=== PATIENT | female | born 1965 | race American Indian/Alaskan Native ===

== ENCOUNTER 2017-07-03 09:21 | Emergency (ER) | payer SELFPAY ==
[2017-07-03] MEDS ORDERED: ASPIRIN PO ONE (09:28)
[2017-07-03] MEDS ORDERED: NORVASC PO ONE (09:58)
[2017-07-03 10:18] LABS: BUN/Creatinine Ratio 15; Blood Urea Nitrogen 9 mg/dL (7-17); Calcium 8.7 mg/dL (8.4-10.2); Hemolysis Index 11
[2017-07-03] MEDS ORDERED: SUBLIMAZE IV ONE (10:30)
[2017-07-03] MEDS ORDERED: NACL 0.9% 500 ML 500 ML IV ONE (10:30)
[2017-07-03] MEDS ORDERED: APRESOLINE IV ONE (10:30)
[2017-07-03] MEDS ORDERED: PEPCID IV ONE (10:30)
--- NOTE | 2017-07-03 10:31 | Emergency Department Report ---
ED Chest Pain HPI - General Chief Complaint: Chest Pain Stated Complaint: CP Time Seen by Provider: 07/03/17 10:15 Source: patient, RN notes reviewed Mode of arrival: Ambulatory Limitations: No Limitations - History of Present Illness Initial Comments: This is a 52-year-old female. The patient is previously unknown to this provider. She has a past medical history of hypertension. She does not have a local primary care doctor. She presents to the ER with a complaint of chest pressure and pain. It started yesterday. It is intermittent. It does not radiate to the back, arms or neck. He does not have exacerbating or relieving factors. There is no vomiting, diaphoresis. The patient does describe shortness of breath with exertion There is no recent aspirin use or cocaine use. There are no DVT or pulmonary embolus risk factors. There is no hematemesis or bright red blood per rectum. MD Complaint: chest pain -: Gradual Onset: during rest, during exertion Pain Location: substernal Severity: moderate Quality: tightness, aching Consistency: intermittent Improves With: rest Worsens With: movement re: dyspnea Aspirin use within the Past 7 Days: (0) No - Related Data On Oral Contraceptives: No Home Medications Medication Instructions Recorded Confirmed Last Taken No Known Home Medications [No 07/03/17 07/03/17 Unknown Reported Home Medications] Allergies Allergy/AdvReac Type Severity Reaction Status Date / Time No Known Allergies Allergy Unverified 11/07/12 18:10 Heart Score - HEART Score History: Moderately suspicious EKG: Non-specific Age: 45-65 Risk factors: 1-2 risk factors Troponin: < normal limit HEART Score: 4 - Critical Actions Critical Actions: 4-6 pts:12-16.6% risk of adverse cardiac event. Should be admitted ED Review of Systems ROS: Stated complaint: CP Other details as noted in HPI Comment: All other systems reviewed and negative ED Past Medical Hx - Past Medical History Hx Hypertension: Yes Hx Arthritis: Yes - Surgical History Additional Surgical History: Tubligation and , right hand surgery - Social History Smoking Status: Never Smoker Substance Use Type: None - Medications Home Medications: Home Medications Medication Instructions Recorded Confirmed Last Taken Type No Known Home Medications [No 07/03/17 07/03/17 Unknown History Reported Home Medications] ED Physical Exam - General Limitations: No Limitations General appearance: alert, in no apparent distress - Head Head exam: Present: atraumatic, normocephalic - Eye Eye exam: Present: normal appearance, EOMI. Absent: nystagmus - ENT ENT exam: Present: normal exam, normal orophraynx, mucous membranes moist, normal external ear exam - Neck Neck exam: Present: normal inspection, full ROM - Respiratory Respiratory exam: Present: normal lung sounds bilaterally. Absent: respiratory distress, chest wall tenderness - Cardiovascular Cardiovascular Exam: Present: regular rate, normal rhythm, normal heart sounds. Absent: bradycardia, tachycardia, irregular rhythm, systolic murmur, diastolic murmur, rubs, gallop - GI/Abdominal GI/Abdominal exam: Present: soft, normal bowel sounds. Absent: distended, tenderness, guarding, rebound, rigid, pulsatile mass - Extremities Exam Extremities exam: Present: normal inspection, full ROM, normal capillary refill. Absent: pedal edema, joint swelling, calf tenderness - Back Exam Back exam: Present: normal inspection, full ROM. Absent: tenderness, CVA tenderness (R), paraspinal tenderness, vertebral tenderness - Neurological Exam Neurological exam: Present: alert, oriented X3, CN II-XII intact, normal gait, other (Extraocular movements intact. Tongue midline. No facial droop. Facial sensation intact to light touch in the V1, V2, V3 distribution bilaterally. 5 and 5 strength in 4 extremities.. Sensation is intact to light touch in 4 extremities.). Absent: motor sensory deficit - Psychiatric Psychiatric exam: Present: anxious - Skin Skin exam: Present: warm, dry, intact, normal color. Absent: rash ED Course Vital Signs 07/03/17 07/03/17 07/03/17 09:24 09:56 10:00 Temperature 98.6 F Pulse Rate 74 62 Respiratory 17 Rate Blood Pressure 242/113 Blood Pressure [Left] O2 Sat by Pulse 98 100 100 Oximetry 07/03/17 07/03/17 07/03/17 10:16 10:30 10:46 Temperature Pulse Rate 71 76 65 Respiratory 20 14 13 Rate Blood Pressure 197/86 197/86 199/89 Blood Pressure [Left] O2 Sat by Pulse 100 100 100 Oximetry 07/03/17 07/03/17 07/03/17 11:26 11:30 11:40 Temperature Pulse Rate 76 Respiratory 22 15 Rate Blood Pressure 205/77 205/77 205/77 Blood Pressure [Left] O2 Sat by Pulse 98 98 Oximetry 07/03/17 07/03/17 07/03/17 11:41 11:46 12:00 Temperature Pulse Rate 79 75 86 Respiratory 16 17 Rate Blood Pressure 205/77 181/79 199/89 Blood Pressure [Left] O2 Sat by Pulse 99 99 Oximetry 07/03/17 07/03/17 07/03/17 12:16 12:30 12:46 Temperature Pulse Rate 78 82 74 Respiratory 13 16 15 Rate Blood Pressure 153/56 181/79 181/79 Blood Pressure [Left] O2 Sat by Pulse 100 100 100 Oximetry 07/03/17 07/03/17 07/03/17 12:58 13:00 13:16 Temperature Pulse Rate 82 78 77 Respiratory 16 14 17 Rate Blood Pressure 162/61 161/56 Blood Pressure 162/61 [Left] O2 Sat by Pulse 97 99 99 Oximetry 07/03/17 07/03/17 13:30 14:00 Temperature Pulse Rate 69 Respiratory 16 16 Rate Blood Pressure 161/56 Blood Pressure [Left] O2 Sat by Pulse 99 98 Oximetry - Reevaluation(s) Reevaluation #1: 07/03/17 12:01 Differential diagnosis, including but not limited to: Acute coronary syndrome, GERD, gastritis, hypertensive cardiac myopathy, pneumonia, aortic dissection Pulmonary embolus Assessment and plan: 52-year-old female with chest pain, hypertension. She is afebrile with reassuring vital signs with the exception of markedly elevated blood pressure. There are no pulmonary embolus or DVT risk factors, the patient is low risk by well's criteria. However, her blood pressure is markedly elevated. Therefore, we will obtain a CT scan of the chest. The patient has equal pulses in the bilateral upper and lower extremities. Denies cocaine use. Elevated blood pressures mostly chronic and secondary to medication noncompliance. Her EKG is abnormal but unchanged from prior. I did recommend admission to the hospital for blood pressure control and for cardiac risk stratification. The patient is going to sign if she wants to stay or not. She does exhibit decision-making capacity and she is here from distracting injury. Reevaluation #2: 07/03/17 14:33 Blood pressure is improved. CT scan of the chest is negative. States no pain at this time. The Hospital physician is paged. Reevaluation #3: 07/03/17 15:04 Dr. Tang, the [facility] physician accepts the patient to the medical service. AMY score - Amy Score Age > 65: (0) No Aspirin use within the Past 7 Days: (0) No 3 or more CAD Risk Factors: (0) No 2 or more Angina events in past 24 hrs: (1) Yes Known CAD with more than 50% Stenosis: (0) No Elevated Cardiac Markers: (0) No ST Deviation Greater than 0.5mm: (0) No AMY Score: 1 ED Medical Decision Making - Lab Data Result diagrams: 07/03/17 09:36 07/03/17 09:36 Vital Signs 07/03/17 07/03/17 07/03/17 09:24 11:40 11:41 Temperature 98.6 F Pulse Rate 74 76 79 Blood Pressure 242/113 205/77 205/77 O2 Sat by Pulse 98 Oximetry Lab Results 07/03/17 07/03/17 Range/Units 09:36 09:36 WBC 6.0 (4.5-11.0) K/mm3 RBC 4.43 (3.65-5.03) M/mm3 Hgb 9.4 L (10.1-14.3) gm/dl Hct 31.7 (30.3-42.9) % MCV 72 L (79-97) fl MCH 21 L (28-32) pg MCHC 30 (30-34) % RDW 17.8 H (13.2-15.2) % Plt Count 360 (140-440) K/mm3 Lymph % (Auto) 41.5 H (13.4-35.0) % Mcintosh % (Auto) 7.7 H (0.0-7.3) % Eos % (Auto) 3.4 (0.0-4.3) % Baso % (Auto) 0.6 (0.0-1.8) % Lymph # 2.5 (1.2-5.4) K/mm3 Mcintosh # 0.5 (0.0-0.8) K/mm3 Eos # 0.2 (0.0-0.4) K/mm3 Baso # 0.0 (0.0-0.1) K/mm3 Seg Neutrophils % 46.8 (40.0-70.0) % Seg Neutrophils # 2.8 (1.8-7.7) K/mm3 Sodium 140 (137-145) mmol/L Potassium 3.6 (3.6-5.0) mmol/L Chloride 102.1 (98-107) mmol/L Carbon Dioxide 24 (22-30) mmol/L Anion Gap 18 mmol/L BUN 9 (7-17) mg/dL Creatinine 0.6 L (0.7-1.2) mg/dL Estimated GFR > 60 ml/min BUN/Creatinine Ratio 15 % Glucose 111 H (65-100) mg/dL Calcium 8.7 (8.4-10.2) mg/dL Troponin T < 0.010 (0.00-0.029) ng/mL - EKG Data -: EKG Interpreted by Me EKG shows normal: sinus rhythm Rate: normal - EKG Data Interpretation: nonspecific ST-T wave jennifer 07/03/17 12:01 Sinus, 65 bpm, normal axis, QTC prolonged, poor R wave progression, high left ventricular voltage/left ventricular hypertrophy, abnormal EKG, appears unchanged when compared to prior from 07/10/2015. - Radiology Data Radiology results: pending Critical care attestation.: If time is entered above; I have spent that time in minutes in the direct care of this critically ill patient, excluding procedure time. ED Disposition Clinical Impression: Chest pain, Hypertensive urgency Disposition: -09 OP ADMIT IP TO THIS HOSP Is pt being admited?: Yes Condition: Good Instructions: Chest Pain (ED) Referrals: PRIMARY CARE, [Primary Care Provider] - 3-5 Days
[2017-07-03 10:50] LABS: Basophils % (Auto) 0.6 % (0.0-1.8); Eosinophils # (Auto) 0.2 K/mm3 (0.0-0.4); Eosinophils % (Auto) 3.4 % (0.0-4.3); Lymphocytes # (Auto) 2.5 K/mm3 (1.2-5.4); Lymphocytes % (Auto) 41.5 % (13.4-35.0); Mean Corpuscular HGB Conc 30 % (30-34); Mean Corpuscular Volume 72 fl (79-97); Monocytes # (Auto) 0.5 K/mm3 (0.0-0.8); Monocytes % (Auto) 7.7 % (0.0-7.3); Platelet Count 360 K/mm3 (140-440); Red Blood Count 4.43 M/mm3 (3.65-5.03); Red Cell Distribution Width 17.8 % (13.2-15.2)
[2017-07-03 11:07] LABS: Hematocrit 31.7 % (30.3-42.9); Hemoglobin 9.4 gm/dl (10.1-14.3); Mean Corpuscular Hemoglobin 21 pg (28-32)
[2017-07-03] MEDS ORDERED: NITROSTAT SL PRN (12:00)
--- NOTE | 2017-07-03 14:31 | Cat Scan Report ---
CTA chest: History: Chest pain hypertension. Findings: No evidence of aortic aneurysm or pulmonary embolism. No mediastinal mass or adenopathy. No pleural or pericardial effusion. Normal lung parenchyma. No discrete nodularity or consolidation. Large cyst left kidney. Impression: No evidence of pulmonary embolism. No acute lung changes.
--- NOTE | 2017-07-03 15:04 | History and Physical Report ---
Medications and Allergies Allergies Allergy/AdvReac Type Severity Reaction Status Date / Time No Known Allergies Allergy Unverified 11/07/12 18:10 Home Medications Medication Instructions Recorded Confirmed Last Taken Type No Known Home Medications [No 07/03/17 07/03/17 Unknown History Reported Home Medications] Active Meds: Active Medications Nitroglycerin (Nitrostat) 0.4 mg SL .Q5MIN PRN PRN Reason: Chest Pain Exam - Constitutional Vitals: Temp Pulse Resp BP Pulse Ox 98.6 F 69 16 161/56 98 07/03/17 09:24 07/03/17 13:30 07/03/17 14:00 07/03/17 13:30 07/03/17 14:00 Results - Labs CBC & Chem 7: 07/03/17 09:36 07/03/17 09:36 Labs: Abnormal lab results 07/03/17 07/03/17 Range/Units 09:36 09:36 Hgb 9.4 L (10.1-14.3) gm/dl MCV 72 L (79-97) fl MCH 21 L (28-32) pg RDW 17.8 H (13.2-15.2) % Lymph % (Auto) 41.5 H (13.4-35.0) % Sac % (Auto) 7.7 H (0.0-7.3) % Creatinine 0.6 L (0.7-1.2) mg/dL Glucose 111 H (65-100) mg/dL
[2017-07-03 16:11] VITALS: BP 180/54
== END 2017-07-03 16:11 | disposition admitted as inpatient to this hospital (09) ==
LOC: ED 09:21
DX: I10 Essential (primary) hypertension (principal); R07.9 Chest pain, unspecified; Z98.890 Other specified postprocedural states
CPT/HCPCS: 36415; 71275; 80048; 84484; 85025; 93005; 93010; 96374; 96375; 99284; J0360; J3010; J7040; Q9967

== ENCOUNTER 2021-11-09 09:57 | Emergency (ER) | payer SELFPAY ==
[2021-11-09] MEDS ORDERED: KETOROLAC 10 MG TAB PO ONE (13:09)
[2021-11-09] MEDS ORDERED: oxyCODONE /ACETAMINOPHEN 5-325MG TAB PO ONE (13:09)
[2021-11-09] MEDS ORDERED: AMOXICILLIN 500 MG CAP PO ONE (13:10)
--- NOTE | 2021-11-09 13:56 | Emergency Department Report ---
ED ENT HPI - General Chief complaint: Chest Pain Stated complaint: CHEST PAIN, TOOTHACHE Time Seen by Provider: 11/09/21 12:40 Source: patient Mode of arrival: Ambulatory Limitations: No Limitations - History of Present Illness Initial comments: 56-year-old black female with a past medical history of hypertension presents to the emergency department for evaluation of few day history of left-sided toothache that has now started to cause pain in her left ear and give her a headache. She also complains of pain in her chest since yesterday after lifting a heavy object at work. She states that pain in her tooth is 10 out of 10 and the pain in her chest is 6 out of 10 and worse with movement and palpation. She denies shortness of breath, nausea, vomiting, dizziness, and diaphoresis. MD complaint: tooth pain, ear pain -: Gradual, days(s) (4-5) Location: L ear, tooth # (17) Severity: severe Severity scale (0 -10): 10 Quality: aching Consistency: constant Associated Symptoms: gum swelling, toothache. denies: fever, cough, pain with swallowing, sore throat, tinnitus, hearing loss, discharge from ear, rhinorrhea - Related Data Previous Rx's Medication Instructions Recorded Last Taken Type amLODIPine 10 mg PO DAILY #30 tab 07/03/17 Unknown Rx hydroCHLOROthiazide [HCTZ] 25 mg PO QDAY #30 tablet 07/03/17 Unknown Rx Acetaminophen/Codeine [Tylenol 1 tab PO Q6H PRN #12 tab 11/09/21 Unknown Rx /Codeine # 3 tab] Amoxicillin [Amoxicillin TAB] 875 mg PO BID 7 Days #14 tab 11/09/21 Unknown Rx Ketorolac [Toradol] 10 mg PO Q6H PRN #12 tab 11/09/21 Unknown Rx Allergies Allergy/AdvReac Type Severity Reaction Status Date / Time No Known Allergies Allergy Unverified 11/07/12 18:10 ED Dental HPI - General Chief complaint: Chest Pain Stated complaint: CHEST PAIN, TOOTHACHE Time Seen by Provider: 11/09/21 12:40 Source: patient Mode of arrival: Ambulatory Limitations: No Limitations - Related Data Previous Rx's Medication Instructions Recorded Last Taken Type amLODIPine 10 mg PO DAILY #30 tab 07/03/17 Unknown Rx hydroCHLOROthiazide [HCTZ] 25 mg PO QDAY #30 tablet 07/03/17 Unknown Rx Acetaminophen/Codeine [Tylenol 1 tab PO Q6H PRN #12 tab 11/09/21 Unknown Rx /Codeine # 3 tab] Amoxicillin [Amoxicillin TAB] 875 mg PO BID 7 Days #14 tab 11/09/21 Unknown Rx Ketorolac [Toradol] 10 mg PO Q6H PRN #12 tab 11/09/21 Unknown Rx Allergies Allergy/AdvReac Type Severity Reaction Status Date / Time No Known Allergies Allergy Unverified 11/07/12 18:10 ED Review of Systems ROS: Stated complaint: CHEST PAIN, TOOTHACHE Other details as noted in HPI Comment: All other systems reviewed and negative Constitutional: denies: chills, fever Eyes: denies: vision change ENT: ear pain, dental pain. denies: congestion Respiratory: denies: cough, shortness of breath, SOB with exertion, SOB at rest, stridor, wheezing Cardiovascular: chest pain. denies: palpitations, dyspnea on exertion, orthopnea, edema, syncope, paroxysmal nocturnal dyspnea Gastrointestinal: denies: abdominal pain, nausea, vomiting Genitourinary: denies: urgency, dysuria Musculoskeletal: denies: back pain Skin: denies: rash, lesions Neurological: denies: headache, weakness ED Past Medical Hx - Past Medical History Hx Hypertension: Yes Hx Arthritis: Yes - Surgical History Additional Surgical History: Tubligation and , right hand surgery - Social History Smoking Status: Never Smoker Substance Use Type: None - Medications Home Medications: Home Medications Medication Instructions Recorded Confirmed Last Taken Type amLODIPine 10 mg PO DAILY #30 tab 07/03/17 Unknown Rx hydroCHLOROthiazide [HCTZ] 25 mg PO QDAY #30 tablet 07/03/17 Unknown Rx Acetaminophen/Codeine [Tylenol 1 tab PO Q6H PRN #12 tab 11/09/21 Unknown Rx /Codeine # 3 tab] Amoxicillin [Amoxicillin TAB] 875 mg PO BID 7 Days #14 tab 11/09/21 Unknown Rx Ketorolac [Toradol] 10 mg PO Q6H PRN #12 tab 11/09/21 Unknown Rx ED Physical Exam - General Limitations: No Limitations General appearance: alert, in no apparent distress - Head Head exam: Present: atraumatic, normocephalic - Eye Eye exam: Present: normal appearance. Absent: conjunctival injection - ENT ENT exam: Present: TM's normal bilaterally, normal external ear exam - Expanded ENT Exam Expanded Teeth exam: Present: dental caries, dental tenderness # (17), other (Dental abscess noted to gums around tooth #17.) Throat exam: Positive: normal inspection - Neck Neck exam: Present: normal inspection, tenderness (Left side only). Absent: lymphadenopathy - Respiratory Respiratory exam: Present: normal lung sounds bilaterally, chest wall tenderness. Absent: respiratory distress, wheezes, rales, rhonchi, stridor - Cardiovascular Cardiovascular Exam: Present: regular rate, normal heart sounds - GI/Abdominal GI/Abdominal exam: Present: soft, normal bowel sounds. Absent: distended, tenderness, guarding, rebound, rigid - Extremities Exam Extremities exam: Present: normal inspection, full ROM, normal capillary refill. Absent: pedal edema, joint swelling, calf tenderness - Back Exam Back exam: Present: normal inspection. Absent: CVA tenderness (R), CVA tenderness (L) - Neurological Exam Neurological exam: Present: alert, oriented X3, normal gait - Psychiatric Psychiatric exam: Present: normal affect, normal mood - Skin Skin exam: Present: warm, dry, intact, normal color ED Course Vital Signs 11/09/21 10:00 Temperature 98.4 F Pulse Rate 68 Respiratory 18 Rate Blood Pressure 179/89 [Left] O2 Sat by Pulse 99 Oximetry ED Medical Decision Making - EKG Data Interpretation: no acute changes, normal EKG - Medical Decision Making 56-year-old black female with a past medical history of hypertension presents to the emergency department for evaluation of few day history of left-sided toothache that has now started to cause pain in her left ear and give her a headache. She also complains of pain in her chest since yesterday after lifting a heavy object at work. She states that pain in her tooth is 10 out of 10 and the pain in her chest is 6 out of 10 and worse with movement and palpation. She denies shortness of breath, nausea, vomiting, dizziness, and diaphoresis. Physical exam consistent with dental abscess and chest wall tenderness. EKG without any acute ischemic changes noted. Patient be discharged home with 7-day course of amoxicillin, Toradol, and Tylenol 3 to use as directed. She is advised to follow-up with her primary care provider and a dentist for further evaluation and management. She is advised to return to the emergency department as needed. She verbalizes understanding of and agreement with plan of care. Critical care attestation.: If time is entered above; I have spent that time in minutes in the direct care of this critically ill patient, excluding procedure time. ED Disposition Clinical Impression: Dental abscess, Chest wall pain Disposition: 01 HOME / SELF CARE / HOMELESS Is pt being admited?: No Does the pt Need Aspirin: No Condition: Stable Instructions: Chest Wall Pain, [id number], Dental Abscess, [id number], Nonspecific Chest Pain, Adult Additional Instructions: Take medications as prescribed. 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 Return to the emergency department as needed. Prescriptions: Amoxicillin [Amoxicillin TAB] 875 mg PO BID 7 Days #14 tab Ketorolac [Toradol] 10 mg PO Q6H PRN #12 tab PRN Reason: Pain Acetaminophen/Codeine [Tylenol /Codeine # 3 tab] 1 tab PO Q6H PRN #12 tab PRN Reason: Pain , Severe (7-10) Referrals: SID CASTELLANO MD [Staff Physician] - 3-5 Days ODELL BENTON MD [Staff Physician] - 3-5 Days [facility] [Outside] - 3-5 Days [facility] [Outside] - 3-5 Days Forms: Work/School Release Form(ED) Time of Disposition: 13:59
[2021-11-09 14:46] VITALS: BP 162/84
--- NOTE | 2021-11-13 09:32 | Electrocardiograph Report ---
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
== END 2021-11-09 14:46 | disposition home or self-care (01) ==
LOC: ED 09:57
DX: R07.9 Chest pain, unspecified (principal); K04.7 Periapical abscess without sinus; I10 Essential (primary) hypertension; M19.90 Unspecified osteoarthritis, unspecified site
CPT/HCPCS: 93005; 99282